=== PATIENT | female | born 1990 | race Caucasian/White ===

== ENCOUNTER 2020-04-03 15:10 | Outpatient (CLI) | payer BC, OTHER | END 2020-04-03 23:59 | disposition home or self-care (01) | LOC: RAD 15:10 | PROVIDERS: ATTEND Family Medicine | DX: N83.202 Unspecified ovarian cyst, left side (principal); R19.09 Other intra-abdominal and pelvic swelling, mass and lump | CPT/HCPCS: 72192 ==

== ENCOUNTER 2020-04-16 12:52 | Outpatient (CLI) | payer OTHER ==
[~2020-04-16 12:52] MED LIST: LIDOCAINE 1%, 10ML ONE
[2020-04-16] MEDS ORDERED: NALT50TA PO (19:22)
== END 2020-04-16 23:59 | disposition home or self-care (01) ==
LOC: RAD 12:52
PROVIDERS: ATTEND Family Medicine
DX: R22.41 Localized swelling, mass and lump, right lower limb (principal); L02.31 Cutaneous abscess of buttock; Z88.0 Allergy status to penicillin; Z88.1 Allergy status to other antibiotic agents; Z72.89 Other problems related to lifestyle; Z79.899 Other long term (current) drug therapy; Z79.2 Long term (current) use of antibiotics; Z83.3 Family history of diabetes mellitus
CPT/HCPCS: 10030; 87070; 87077; 87102; 87186; 87205; C1729; C1769; J3490; 49407

== ENCOUNTER 2020-04-16 15:16 | Inpatient (IN) | payer OTHER ==
[~2020-04-16] VITALS: Ht 177.8 cm; Wt 81.7 kg
[2020-04-16] MEDS ORDERED: SODIUM CHLORIDE 0.9% 1,000 ML IV ONE (16:16)
[2020-04-16] MEDS ORDERED: SODIUM CHLORIDE FLUSH 10ML SYR IVF ONE (16:30)
[2020-04-16 16:45] LABS: BASOPHILS # (AUTO) 0.01 x10^3/uL (0-0.1); BASOPHILS % (AUTO) 0 % (0-1); EOSINOPHILS # (AUTO) 0.55 x10^3/uL (0-0.4); EOSINOPHILS % (AUTO) 5 % (1-7); LYMPHOCYTES # (AUTO) 1.49 x10^3/uL (1-3.4); LYMPHOCYTES % (AUTO) 14 % (22-44); MD NO; MEAN CORPUSCULAR HEMOGLOBIN 29.4 pg (27.0-34.8); MEAN CORPUSCULAR HGB CONC 33.4 g/dL (32.4-35.8); MEAN CORPUSCULAR VOLUME 88.1 fL (80-100); MEAN PLATELET VOLUME 7.7 fL (7.4-10.4); MONOCYTES # (AUTO) 0.73 x10^3/uL (0.2-0.8); MONOCYTES % (AUTO) 7 % (2-9); NEUTROPHILS # (AUTO) 8.12 x10^3/uL (1.8-6.8); NEUTROPHILS % (AUTO) 75 % (42-75); PLATELET COUNT 399 x10^3/uL (130-400); RED BLOOD COUNT 4.38 x10^6/uL (3.82-5.3); RED CELL DISTRIBUTION WIDTH 13.4 % (9.6-15.2)
[2020-04-16 16:56] LABS: ALBUMIN 3.1 g/dL (3.4-5.0); ANION GAP 7 mmol/L (5-15); CALCIUM 8.3 mg/dL (8.5-10.1); CHLORIDE 106 mmol/L (98-107)
[2020-04-16 16:59] LABS: ALANINE AMINOTRANSFERASE 12 U/L (12-78); ALKALINE PHOSPHATASE 86 U/L (45-117); BILIRUBIN,TOTAL 0.4 mg/dL (0.2-1.0); CREATININE 0.55 mg/dL (0.55-1.02)
--- NOTE | 2020-04-16 17:08 | NUR ---
DRAFTER GEOLOGICAL: PT TO ROOM FROM [facility]
[2020-04-16] MEDS ORDERED: CLINDAMYCIN PMX 900MG/50ML 50 ML ONE (17:53)
[2020-04-16] MEDS ORDERED: CLINDAMYCIN PMX 900MG/50ML 50 ML IV ONE (18:00)
--- NOTE | 2020-04-16 18:01 | NUR ---
IV ANTIBIOTICS STARTED AFTER BLOOD CULTURES DRAWN
[2020-04-16] MEDS ORDERED: SODIUM CHLORIDE 0.9% 1,000 ML IV SCH (18:26)
[2020-04-16] MEDS: CLINDAMYCIN PMX 900MG/50ML 50 ML IV SCH (18:30)
[2020-04-16] MEDS ORDERED: morphine SULFATE 10 MG/ML, 1ML IVPush PRN (18:30)
[2020-04-16] MEDS ORDERED: ACETAMINOPHEN 325 MG TABLET PO PRN (18:30)
[2020-04-16] MEDS ORDERED: HEPARIN 5,000 UNITS/ML, 1ML ONE (19:19)
[2020-04-16] MEDS ORDERED: NALT50TA PO (19:22)
--- NOTE | 2020-04-16 19:23 | NUR ---
BS REPORT FROM AMANDA SHETTY. SITTING UP IN [facility], APPEARS COMFORTABLE. PT REQUESTING FOOD. LÁZARO DAVIS. TM. MAEx4. PT REPORTS APPROXIMATELY 1200ML OUT FROM DRAIN SINCE PLACEMENT.
[2020-04-16] MEDS: HEPARIN 5,000 UNITS/ML, 1ML SQ SCH (19:28)
--- NOTE | 2020-04-16 19:51 | NUR ---
REPORT CALLED TO MENA SHETTY. PT CARE TO BE TRANSFERRED UPON ARRIVAL TO THE FLOOR. MARGAUX DAVIS.
[2020-04-16 22:57] VITALS: BP 122/78
[2020-04-17 01:14] VITALS: BP 111/70
[2020-04-17] MEDS: CLINDAMYCIN PMX 900MG/50ML 50 ML IV SCH ×3 (01:55→18:39)
[2020-04-17] MEDS: HEPARIN 5,000 UNITS/ML, 1ML SQ SCH ×3 (02:30→18:30)
[2020-04-17 05:36] LABS: ANION GAP 5 mmol/L (5-15); CALCIUM 8.1 mg/dL (8.5-10.1); CHLORIDE 112 mmol/L (98-107)
[2020-04-17 05:45] LABS: BASOPHILS # (AUTO) 0.03 x10^3/uL (0-0.1); BASOPHILS % (AUTO) 1 % (0-1); EOSINOPHILS # (AUTO) 0.54 x10^3/uL (0-0.4); EOSINOPHILS % (AUTO) 8 % (1-7); LYMPHOCYTES # (AUTO) 1.33 x10^3/uL (1-3.4); LYMPHOCYTES % (AUTO) 21 % (22-44); MD NO; MEAN CORPUSCULAR HEMOGLOBIN 29.3 pg (27.0-34.8); MEAN CORPUSCULAR VOLUME 88.7 fL (80-100); MEAN PLATELET VOLUME 7.9 fL (7.4-10.4); MONOCYTES # (AUTO) 0.61 x10^3/uL (0.2-0.8); MONOCYTES % (AUTO) 10 % (2-9); NEUTROPHILS # (AUTO) 3.87 x10^3/uL (1.8-6.8); NEUTROPHILS % (AUTO) 61 % (42-75); PLATELET COUNT 310 x10^3/uL (130-400); RED BLOOD COUNT 3.54 x10^6/uL (3.82-5.3); RED CELL DISTRIBUTION WIDTH 13.2 % (9.6-15.2)
[2020-04-17 07:25] VITALS: BP 112/73
[2020-04-17 14:54] VITALS: BP 106/68
[2020-04-17 18:52] VITALS: BP 135/75
[2020-04-18 01:55] VITALS: BP 89/51
[2020-04-18] MEDS: HEPARIN 5,000 UNITS/ML, 1ML SQ SCH ×2 (02:21→10:08)
[2020-04-18] MEDS: CLINDAMYCIN PMX 900MG/50ML 50 ML IV SCH ×2 (02:21→10:13)
[2020-04-18 08:30] VITALS: BP 121/70
[2020-04-18] MEDS ORDERED: CLIN300C8 PO (09:53)
[2020-04-18] MEDS ORDERED: FLUC150T2 PO (09:53)
[2020-04-18] MEDS ORDERED: CLIN150C14 PO (09:53)
== END 2020-04-18 13:50 | disposition home or self-care (01) | DRG 603 ==
LOC: ED 18:19 → EDIP 18:47 → 3N 20:10 → DCLOUNGE 04-18 13:44
PROVIDERS: ADMIT Family Medicine; ATTEND Hospitalist
PROC: 0H98XZZ Drainage of Buttock Skin, External Approach (ICD-10-PCS; principal; 2020-04-16)
DX: L03.317 Cellulitis of buttock (principal); L02.31 Cutaneous abscess of buttock; L30.9 Dermatitis, unspecified; B95.61 Methicillin susceptible Staphylococcus aureus infection as the cause of diseases classified elsewhere
CPT/HCPCS: 36415; 80048; 80053; 83605; 85025; 87040; 87070; 87147; 87205; G0378; J1644; J7030